=== PATIENT | male | born 1965 | race Caucasian/White ===

== ENCOUNTER 2017-03-07 07:40 | Emergency (ER) | payer MEDICAID, OTHER ==
[~2017-03-07] VITALS: Ht 188 cm; Wt 84.1 kg
[~2017-03-07 07:40] MED LIST: ALPR2TAB6 PO; CYCL5TAB11 PO; GABA600T PO; TRAM-69 PO; [UNRECOGNIZED DRUG - CODE] PO
[2017-03-07 07:42] VITALS: BP 133/85; PULSE 107; RESP 18; O2SAT 98
--- NOTE | 2017-03-07 07:54 | ED.REPORT ---
HPI-General Illness Date of Service Mar 07, 2017 ED Provider: Zohaib Katz MD The patient is a 51 year old homeless male who presents to the emergency department complaining of blisters that are located to both of his feet. He has had blisters for the last 2-3 days due to extensive walking. He has been trying to shave the blisters down, keep the areas clean, and cover with Neosporin. He presents today requesting that we pop his blisters. The areas are painful. He denies fever, chills, cough, congestion, chest pain, shortness of breath, abdominal pain, nausea or vomiting. Nursing Notes Stated Complaint: BLISTERS ON FEET Chief Complaint: General Complaint Nursing Notes Reviewed: Yes Allergies: Coded Allergies: No Known Allergies (Verified Allergy, Unknown, 03/08/14) Scheduled Alprazolam-Expunged Drug, Do Not Renew! (Alprazolam-Expunged Drug, Do Not Renew! ) 2 Mg Tablet 2 MG PO BID Cyclobenzaprine-Expunged Drug, Do Not Renew! (Flexeril-Expunged Drug, Do Not Renew!) 5 Mg Tablet 10 MG PO PRN For muscle spasms. Gabapentin-Expunged Drug, Do Not Renew! (Neurontin-Expunged Drug, Do Not Renew! ) 600 Mg Tablet 1,200 MG PO BID Mixed Amphet-Expunged Drug, Do Not Renew! (Mixed Amphet-Expunged Drug, Do Not Renew!) 5 Mg Capsule.sa 7.5 MG PO BID Tramadol Hcl-Expunged Drug, Do Not Renew! (Ultram-Expunged Drug, Do Not Renew!) 50 Mg Tablet 50 MG PO Q6H For Mild Pain Scheduled PRN Naproxen (Naproxen) 250 Mg Tablet 250 MG PO BID PRN PRN For Pain General Time Seen by MD: 07:47 Chief Complaint Other (blisters) Hx Obtained From: Patient Arrived By: Walk-in Sudden in Onset?: No Onset Occurred: 3 days ago Symptom Duration: Since onset Location: : Foot left: Foot right Quality: Painful Severity: Current: Mild Severity: Maximum: Mild Recent Healthcare: No recent doctor visit, No recent hospitalization Similar Sx Previous: Yes Past Medical History Past Medical History Joint pain Anxiety Chronic back pain ADD PTSD Past Surgical History Reports: Inguinal hernia repair Family History Noncontributory Smoking History Unknown if Ever Smoker Social History Alcohol Use: "Social" Drug Use: IV drugs, Meth, THC Other Social History: Local resident Ambulatory Status Independent Review of Systems +blisters to his feet bilaterally Full Review of Systems Constitutional: Denies: Chills, Fever Ears / Nose / Throat: Denies: Nasal congestion Respiratory: Denies: Non-productive cough, Shortness of breath Cardiovascular: Denies: Chest pain GI: Denies: Abdominal pain, Nausea, Vomiting Musculoskeletal: Reports: Extremity pain Complete sys rev & neg: except as marked. Physical Exam Vital Signs Vital Signs Date Time Temp Pulse Resp B/P Pulse Ox O2 Delivery O2 Flow Rate FiO2 03/07/17 09:33 110 22 143/98 98 Room Air 03/07/17 07:42 36.6 107 18 133/85 98 Room Air Initial VS: Reviewed Head / Eyes: Atraumatic, Normocephalic, PERRL ENT: Mucous membranes moist, Conjunctiva normal, No scleral icterus Neck: Supple, Non-tender, Full range of motion Extremities: Vascular intact, Neuro intact, No swelling, No tenderness Skin: Warm, Dry, No cyanosis Neurologic: Alert, Oriented, Nonfocal Psychiatric: Mood/affect normal, Behavior normal, Normal thought content General/Constitutional: Alert, Cooperative Poor hygiene Respiratory / Chest: No respiratory distress Ankle / Foot: Neurologic intact, Vascular intact To his posterior heals bilaterally he has 1x2 cm blisters with no surrounding erythema. There is no active drainage or signs of infection. He also has significant calluses to both of his feet. Re-Eval/Medical Decision Med Decision/Clinical Course 51-year-old male history of homelessness presenting with blisters on his feet. He does have 2 blisters posterior heel bilateral. There is no evidence of infection. Provided him with barrier cream and dressings. He will follow up with podiatry and primary doctor. Return precautions given. Source of Hx: Old records Time of Eval: 08:56 Re-Evaluation/Progress Note: Discussed plan for discharge. All questions were addressed. Counseled Regarding: Diagnosis, Need for follow-up, When/why to return to ED Discharge & Departure Primary Impression: Blisters of multiple sites Disposition: Home Discharge Condition All VS Reviewed: Yes Condition: Stable Patient Instructions: Blister (ED) Additional Instructions: Thank you for entrusting us with your care today. Continue to keep the areas clean and covered in antibiotic ointment. You can wrap the painful areas with gauze and tape to add more support while you are wearing your tennis shoes. It is important to change your socks regularly especially if they are wet. Use the naproxen as needed for your pain. We have given you a referral to a video game repair technician, Dr. Hernandez. Call today to schedule an appointment. Return to the emergency department for any signs of infection. Referrals: Shola Pacheco MD (PCP) Ciera Hernandez DPM Attestation Portions of this note were transcribed by Mary Valles. I, Dr. Katz personally performed the history, physical exam and medical decision-making; I reviewed and confirmed the accuracy of the information in the transcribed note. Signed by: Timothy Tyson, 03/07/2017 at 0915. copies to: Shola Pacheco MD; Ciera Hernandez DPM, Ben M MD Mar 07, 2017 07:54 Mary Valles Mar 07, 2017 07:56
[2017-03-07] MEDS ORDERED: NAPR250T PO (09:20)
[2017-03-07 09:33] VITALS: BP 143/98; PULSE 110; RESP 22; O2SAT 98
== END 2017-03-07 09:34 | disposition home or self-care (01) ==
LOC: SED 07:40
DX: S90.822A Blister (nonthermal), left foot, initial encounter (principal); S90.821A Blister (nonthermal), right foot, initial encounter; X58.XXXA Exposure to other specified factors, initial encounter; Y93.01 Activity, walking, marching and hiking; Y99.8 Other external cause status; Y92.9 Unspecified place or not applicable; F15.10 Other stimulant abuse, uncomplicated; F12.10 Cannabis abuse, uncomplicated; B18.2 Chronic viral hepatitis C; Z59.0 Homelessness

== ENCOUNTER 2017-03-12 17:32 | Emergency (ER) | payer OTHER ==
[~2017-03-12] VITALS: Ht 188 cm; Wt 81.8 kg
[~2017-03-12 17:32] MED LIST changes: +NAPR250T PO
[2017-03-12 17:58] VITALS: BP 107/64; PULSE 97; RESP 16; O2SAT 99
--- NOTE | 2017-03-12 18:16 | ED.REPORT ---
HPI-Extremity Problem Upper Date of Service Mar 12, 2017 ED Provider: Iain Roe PA-C Sikh version otherwise healthy 51-year-old male generally chief complaint right index finger pain and swelling. Patient reports approximately 1 day history of pain and swelling of the middle phalanx. He can recall no specific trauma, though he thinks he may have gotten a splinter in it. Also complains of some redness of his left elbow. Denies other symptoms. Nursing Notes Stated Complaint: RIGHT FINGER SWELLING Chief Complaint: Extremity Trauma Nursing Notes Reviewed: Yes Allergies: Coded Allergies: No Known Allergies (Verified Allergy, Unknown, 03/08/14) Scheduled Alprazolam-Expunged Drug, Do Not Renew! (Alprazolam-Expunged Drug, Do Not Renew! ) 2 Mg Tablet 2 MG PO BID Cephalexin (Cephalexin) 500 Mg Capsule 500 MG PO QID Cyclobenzaprine-Expunged Drug, Do Not Renew! (Flexeril-Expunged Drug, Do Not Renew!) 5 Mg Tablet 10 MG PO PRN For muscle spasms. Gabapentin-Expunged Drug, Do Not Renew! (Neurontin-Expunged Drug, Do Not Renew! ) 600 Mg Tablet 1,200 MG PO BID Mixed Amphet-Expunged Drug, Do Not Renew! (Mixed Amphet-Expunged Drug, Do Not Renew!) 5 Mg Capsule.sa 7.5 MG PO BID Tramadol Hcl-Expunged Drug, Do Not Renew! (Ultram-Expunged Drug, Do Not Renew!) 50 Mg Tablet 50 MG PO Q6H For Mild Pain Scheduled PRN Acetaminophen (Acetaminophen) 500 Mg Tablet 1,000 MG PO Q6H PRN PRN For Pain Ibuprofen (Ibuprofen) 600 Mg Tablet 600 MG PO QID PRN PRN For Pain Naproxen (Naproxen) 250 Mg Tablet 250 MG PO BID PRN PRN For Pain General Time Seen by MD: 18:04 Chief Complaint Finger injury right 2 Past Medical History Past Medical History Joint pain Anxiety Chronic back pain ADD PTSD Past Surgical History Reports: Inguinal hernia repair Family History Noncontributory Smoking History Unknown if Ever Smoker Social History Alcohol Use: "Social" Drug Use: IV drugs, Meth, THC Other Social History: Local resident Ambulatory Status Independent Review of Systems Review of Systems Note: Negative unless stated otherwise in history of present illness Physical Exam General: Well appearing, well developed, well nourished, no acute distress. Right hand: Index finger is notably red and swollen but blanches when flexed. Tender over palmar aspect of the middle phalanx. No obvious breaks in the skin. Sensation and circulation are intact distally. Hand is otherwise normal to inspection and nontender. Left elbow: Small patch of redness on the posterior aspect. Head: Atraumatic, normocephalic. Eyes: No scleral icterus or injection. No discharge. Vision grossly intact. ENT: Voice clear, hearing grossly intact. Respiratory: No respiratory distress, no increased work of breathing. Speaks in complete sentences. Skin: Warm and dry. Neurological: Grossly nonfocal. Psychological: alert and oriented. Speech appropriate, linear and logical. Behavior appropriate. Initial Vital Signs Vital Signs (First) Date Time Temp Pulse Resp B/P Pulse Ox O2 Delivery O2 Flow Rate FiO2 03/12/17 17:58 36.8 97 16 107/64 99 Room Air Normal Re-Eval/Medical Decision Med Decision/Clinical Course 51-year-old male with 1 day history of red swollen right index finger, cannot identify trauma, suspects thorn. Physical examination reveals a red, swollen, neurovascularly intact right index finger with tenderness on the palmar aspect of the middle phalanx. No obvious breaks in skin. Full range of motion at MCP DIP and PIP joints. At this point I suspect cellulitis, and was concerned about fracture, dislocation, gout, septic joint or tenosynovitis. Prescribed Keflex as there appears to be no purulent element. Advise primary care follow- up, provided were to return precautions. Patient verbalizes understanding of and consent to plan Discharge & Departure Impression: Primary Impression: Cellulitis Site of cellulitis: extremity Site of cellulitis of extremity: finger Laterality: right Qualified Code: L03.011 - Cellulitis of right finger Disposition: Home Discharge Condition All VS Reviewed: Yes Condition: Stable Patient Instructions: Cellulitis (ED) Additional Instructions: Evaluation in the emergency department for a swollen finger includes interview and physical examination, both of which suggest that you may have an infection in the skin of the right index finger. I will write a prescription for Keflex 500 mg taken 4 times a day for the next 7 days. Please be sure to take every dose. The pain is best treated with 400 mg of ibuprofen (Advil, Motrin) every 6 hours , or 1000 mg of acetaminophen (Tylenol) every 6 hours. These drugs can be taken at the same time for more severe pain. Follow-up with your primary care provider in about a week to be sure this resolves as expected. Return emergency Department for new or worsening symptoms including increasing redness, swelling, pain, feeling ill, fever. Referrals: Deuce Person DO (PCP) EDSupervising Provider for APC: Peter Landry MD copies to: Deuce Person Seth PA-C Mar 12, 2017 18:16
[2017-03-12] MEDS ORDERED: ACET-171 PO (18:18)
[2017-03-12] MEDS ORDERED: CEPH500C PO (18:18)
[2017-03-12] MEDS ORDERED: IBUP-1827 PO (18:18)
== END 2017-03-12 18:26 | disposition home or self-care (01) ==
LOC: SED 17:32
DX: L03.011 Cellulitis of right finger (principal); F43.10 Post-traumatic stress disorder, unspecified